=== PATIENT | female | born 1955 | race Caucasian/White ===

== ENCOUNTER 2016-07-08 07:58 | Emergency (ER) | payer BC, OTHER ==
[~2016-07-08] VITALS: Ht 152.4 cm; Wt 68.0 kg
[2016-07-08 09:29] VITALS: BP 128/84
== END 2016-07-08 09:29 | disposition home or self-care (01) ==
LOC: ER 08:00
DX: S63.502A Unspecified sprain of left wrist, initial encounter (principal); S80.01XA Contusion of right knee, initial encounter; S20.212A Contusion of left front wall of thorax, initial encounter; M54.5 Low back pain; Z88.8 Allergy status to other drugs, medicaments and biological substances; W01.0XXA Fall on same level from slipping, tripping and stumbling without subsequent striking against object, initial encounter; Y93.89 Activity, other specified; Y92.89 Other specified places as the place of occurrence of the external cause; Y99.9 Unspecified external cause status
CPT/HCPCS: 70450; 70486; 71100; 72074; 73110; 73564; 99284; A4606; Z7610

== ENCOUNTER 2016-11-12 07:38 | Emergency (ER) | payer BC, OTHER ==
[~2016-11-12] VITALS: Ht 147.3 cm; Wt 63.0 kg
[2016-11-12 07:38] VITALS: BP 126/93
== END 2016-11-12 08:19 | disposition home or self-care (01) ==
LOC: ER 07:40
DX: M19.031 Primary osteoarthritis, right wrist (principal); Z91.041 Radiographic dye allergy status
CPT/HCPCS: 99283; A4606; Z7610

== ENCOUNTER 2017-04-19 07:42 | Emergency (ER) | payer BC, OTHER ==
[~2017-04-19] VITALS: Ht 147.3 cm; Wt 63.0 kg
[2017-04-19 07:42] VITALS: BP 147/74
[2017-04-19] MEDS ORDERED: predniSONE 20 MG TABLET PO ONE (08:00)
[2017-04-19] MEDS ORDERED: predniSONE 20 MG TABLET ONE (08:01)
== END 2017-04-19 08:16 | disposition home or self-care (01) ==
LOC: ER 07:44
DX: J06.9 Acute upper respiratory infection, unspecified (principal); J20.9 Acute bronchitis, unspecified; B34.9 Viral infection, unspecified; I10 Essential (primary) hypertension; Z88.8 Allergy status to other drugs, medicaments and biological substances
CPT/HCPCS: 99283; A4606; J7512; Z7610